=== PATIENT | female | born 1995 | race African-American/Black ===

== ENCOUNTER 2017-07-11 10:59 | Emergency (ER) | payer OTHER ==
[~2017-07-11] VITALS: Ht 165.1 cm; Wt 101.9 kg
[2017-07-11] MEDS ORDERED: FIORICET,ESG1 TABLET PO (13:30)
[2017-07-11 14:05] VITALS: BP 124/84
== END 2017-07-11 14:06 | disposition home or self-care (01) ==
LOC: EME 10:59
DX: R51 Headache (principal); H53.149 Visual discomfort, unspecified; Z79.3 Long term (current) use of hormonal contraceptives
CPT/HCPCS: 99281; 99284; J1885; J2765; J7030